=== PATIENT | male | born 1960 | race Caucasian/White ===

== ENCOUNTER → 2017-03-09 | Outpatient (CLI) | payer OTHER ==
[~2017-03-09] MED LIST: ASPI81TA18; ATRO0.063; CLOB05OI; LISI-538; SIMV10TA2; SYNT175T2
--- NOTE | 2017-03-14 11:54 | SLEEPCENT ---
DATE OF PROCEDURE: 03/09/2017 ORDERED: Dr. Lopez Nocturnal polysomnography was performed due to concern for the obstructive sleep apnea syndrome in this patient with a history of excessive somnolence and nonrestorative sleep with comorbidities of hypertension and hypothyroidism. 7 hours and 31 minutes of data were reviewed. There were 325 minutes of sleep identified. Sleep latency was mildly prolonged at 17 minutes. Rapid eye movement (REM) latency was more so at 105 minutes. Sleep architecture was fair. There was a period of wake between midnight and 1:00 a.m. resulting in a reduced sleep efficiency of 73%. Overall REM time was significantly reduced, but there were 3 REM periods. The patient's electrocardiogram (EKG) showed a sinus rhythm and mild rate variability surrounding respiratory events. Average heart rate 57 beats per minute. Electroencephalogram (EEG) showed some coarsening in background, otherwise normal waveforms for awake and sleep. There were 27 respiratory events identified of 10 seconds in duration or greater for an apnea-hypopnea index of 5.1. The events were primarily obstructive, not exclusive to sleep stage, more frequent but not exclusive in the supine posture. Arousals from respiratory events occurred 3.9 times per hour and some snoring was also noted. Oxygen desaturations during respiratory events fell into the upper 80s. There was some limb activity, but arousals from limb events were few. IMPRESSION: Mild partially positional obstructive sleep apnea syndrome (G47.33), apnea-hypopnea index 5.1. RECOMMENDATION: Sleep position retraining for avoidance of the supine posture is recommended. Should the patient's symptoms persist, referral back to a sleep disorder center for pressure therapy should be considered.
== END ==
LOC: M SLEEP 20:00
PROVIDERS: ATTEND Internal Medicine Pulmonary Disease
DX: R06.83 Snoring (principal); Z53.9 Procedure and treatment not carried out, unspecified reason

== ENCOUNTER 2017-06-03 08:00 | Emergency (ER) | payer OTHER ==
[~2017-06-03] VITALS: Ht 182.9 cm; Wt 108.2 kg
[2017-06-03] MEDS ORDERED: ASPI81TA18 (08:16)
[2017-06-03] MEDS ORDERED: ATRO0.063 (08:16)
[2017-06-03] MEDS ORDERED: SYNT175T2 (08:16)
[2017-06-03] MEDS ORDERED: SIMV10TA2 (08:16)
[2017-06-03] MEDS ORDERED: LISI-538 (08:16)
[2017-06-03] MEDS ORDERED: CLOB05OI (08:16)
[2017-06-03 08:43] LABS: BASO % 0.5 % (0.0-1.0); EOS # 0.3 10^3/uL (0.0-0.50); EOS % 5.6 % (0.0-3.0); IMMATURE GRANULOCYTE % 0.2 % (0-0); LYMPH # 2.1 10^3/uL (1.5-4.5); MEAN CORPUSCULAR HGB CONC 35.7 g/dl (32.0-36.5); MEAN CORPUSCULAR VOLUME 92.3 fl (80.0-96.0); MONO # 0.6 10^3/uL (0.0-0.8); MONO % 9.9 % (0.0-5.0); NEUTROPHILS # 2.6 10^3/uL (1.8-7.7); NEUTROPHILS % 46.8 % (36.0-66.0); PLATELET COUNT, AUTOMATED 259 10^3/uL (150-450); RED CELL DISTRIBUTION WIDTH 12.4 % (11.5-14.5); WHITE BLOOD COUNT 5.6 10^3/uL (4.0-10.0)
[2017-06-03] MEDS ORDERED: ASPIRIN 81 MG CHEW TABLET PO ONE (08:45)
[2017-06-03] MEDS ORDERED: PANTOPRAZOLE 40MG TAB (PROTONIX) PO ONE (08:45)
[2017-06-03 08:58] LABS: ALBUMIN/GLOBULIN RATIO 1.21 (1.00-1.93); ALKALINE PHOSPHATASE 59 U/L (45-117); ALT/SGPT 45 U/L (12-78); ANION GAP 7 MEQ/L (8-16); AST/SGOT 31 U/L (15-37); BILIRUBIN,DIRECT 0.2 MG/DL (0.0-0.2); BILIRUBIN,TOTAL 0.6 MG/DL (0.2-1.0); BLOOD UREA NITROGEN 13 MG/DL (7-18); CALCIUM LEVEL 8.9 MG/DL (8.5-10.1); CARBON DIOXIDE LEVEL 26 MEQ/L (21-32); CHLORIDE LEVEL 105 MEQ/L (98-107); CREATININE FOR GFR 0.91 MG/DL (0.70-1.30); GLOMERULAR FILTRATION RATE > 60.0 (>56); GLUCOSE, FASTING 90 MG/DL (70-105); POTASSIUM SERUM 3.7 MEQ/L (3.5-5.1); SODIUM LEVEL 138 MEQ/L (136-145); TOTAL PROTEIN 7.3 GM/DL (6.4-8.2)
--- NOTE | 2017-06-03 09:19 | REP ---
CHEST, SINGLE VIEW: There is no evidence of acute infiltrate. No pleural effusion is seen. The heart is normal in size. The mediastinal silhouette is unremarkable. The visualized osseous structures are intact. IMPRESSION: No acute pulmonary disease. Signed by Ramon Garcia MD 06/03/2017 05:19 P
[2017-06-03 12:48] VITALS: BP 114/61
--- NOTE | 2017-06-04 09:17 | ECGEPIP ---
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
--- NOTE | 2017-06-04 09:20 | ECGEPIP ---
Stationary ECG Study [facility] - ED Test Date: 2017-06-03 Pat Name: ANTWAN MANUEL Department: Room: - Gender: M Swimming Pool Attendant: rn : 1960 Requested By: Bala Chapni Order Number: [id number] Reading MD: Anabel Shine Measurements Intervals [place] Rate: 48 P: 46 CO: 290 QRS: 32 QRSD: 99 T: 20 QT: 439 QTc: 394 Interpretive Statements SINUS BRADYCARDIA WITH FIRST DEGREE AV BLOCK POSSIBLE RIGHT VENTRICULAR CONDUCTION DELAY DECREASED RATE 06/03/17 8:08 Electronically Signed On 06-04-2017 9:20:31 EDT by Anabel Shine
== END 2017-06-03 12:49 | disposition home or self-care (01) ==
LOC: M ED 08:00
DX: Q23.1 Congenital insufficiency of aortic valve (principal); R00.1 Bradycardia, unspecified; I44.0 Atrioventricular block, first degree; R07.89 Other chest pain; I10 Essential (primary) hypertension; K21.9 Gastro-esophageal reflux disease without esophagitis; J45.909 Unspecified asthma, uncomplicated; K57.30 Diverticulosis of large intestine without perforation or abscess without bleeding; Z79.899 Other long term (current) drug therapy

== ENCOUNTER 2018-01-12 11:17 | Day surgery (SDC) | payer OTHER ==
[2018-01-12] MEDS: LR 1,000 ML IV (12:25)
[2018-01-12] MEDS ORDERED: fentaNYL 250 MCG/5 ML INJECTION (J3010) As Ordered (13:29)
[2018-01-12] MEDS ORDERED: MIDAZOLAM INJ 2 MG/2 ML VIAL (J2250) As Ordered (13:29)
[2018-01-12] MEDS ORDERED: LIDOCAINE 2% INJ 100 MG/5 ML SDV (FOR ANES.) As Ordered (13:29)
[2018-01-12] MEDS ORDERED: PROPOFOL 200 MG/20 ML VIAL As Ordered (13:29)
[2018-01-12] MEDS ORDERED: ROCURONIUM BROMIDE 50 MG/5 ML VIAL As Ordered ×2 (13:29→14:14)
[2018-01-12] MEDS ORDERED: dexameTHASONE 4 MG/ML 1ML VIAL (J1100) As Ordered ×2 (13:29→14:48)
[2018-01-12] MEDS: ceFAZolin SOD 1 GM in D5W MINI-BAG PLUS 50 ML IV (13:50)
[2018-01-12] MEDS ORDERED: HYDROmorphone HCL 2 MG/ML 1ML VIAL (J1170) As Ordered (14:48)
[2018-01-12] MEDS ORDERED: GLYCOPYRROLATE INJ 0.2 MG/ML 2 ML VIAL As Ordered (14:48)
[2018-01-12] MEDS ORDERED: KETOROLAC 60 MG/2 ML VIAL (J1885) As Ordered (14:48)
[2018-01-12] MEDS ORDERED: NEOSTIGMINE 10 MG/10 ML VIAL (J2710) As Ordered (14:48)
[2018-01-12] MEDS ORDERED: ONDANSETRON 4MG/2ML VIAL (J2405) As Ordered (14:49)
[2018-01-12] MEDS: BUPIVACAINE HCL 0.25% 10 ML VIAL As Ordered (15:38)
[2018-01-12] MEDS: LIDOCAINE W/EPINEPHRINE 1% 20ML VIAL As Ordered (15:38)
[2018-01-12] MEDS ORDERED: fentaNYL 100 MCG/2 ML INJECTION (J3010) IV (16:15)
[2018-01-12] MEDS ORDERED: NORCO, ANEXSIA 5/325MG TABLET (HYDROcodone/ACETAMINOPHEN) PO (16:15)
[2018-01-12] MEDS ORDERED: PERCOCET 5MG/325MG TAB PO (16:15)
[2018-01-12] MEDS ORDERED: MORPHINE 4 MG/ML 1ML VIAL/SYRINGE (J2270) IV (16:15)
[2018-01-12] MEDS ORDERED: LR 1,000 ML IV ×2 (16:15)
[2018-01-12] MEDS ORDERED: ONDANSETRON 4MG/2ML VIAL (J2405) IV ×2 (16:15)
[2018-01-12] MEDS ORDERED: KETOROLAC 30 MG/ML VIAL (J1885) IV (21:00)
[2018-01-18] MEDS ORDERED: IBUPROFEN 600 MG TAB PO (08:00)
== END 2018-01-12 17:55 | disposition home or self-care (01) ==
LOC: M SDC 11:17
DX: K40.90 Unilateral inguinal hernia, without obstruction or gangrene, not specified as recurrent (principal); I35.9 Nonrheumatic aortic valve disorder, unspecified; I10 Essential (primary) hypertension; E78.5 Hyperlipidemia, unspecified; K21.9 Gastro-esophageal reflux disease without esophagitis; N40.0 Benign prostatic hyperplasia without lower urinary tract symptoms; Z87.891 Personal history of nicotine dependence; Z79.82 Long term (current) use of aspirin; M54.5 Low back pain; Z79.899 Other long term (current) drug therapy
CPT/HCPCS: 49650

== ENCOUNTER 2019-02-18 07:41 | Day surgery (SDC) | payer OTHER ==
[~2019-02-18] VITALS: Ht 180.3 cm; Wt 92.7 kg
[~2019-02-18 07:41] MED LIST changes: -ASPI81TA18; +ASPI81TA52; -CLOB05OI; +CLOB05OI TOP; +DOCU100C17 PO; +ECOT81TA5 PO; +FINA5TAB2 PO; -LISI-538; +LISI-538 PO; +NS 1,000 ML IV ONE; +PROBCAP14 PO; +PROC1AER16 PR; +RANI150T PO; -SIMV10TA2; +SIMV10TA2 PO; +SYNT150T PO; +VITA100054 PO
--- NOTE | 2019-02-18 09:32 | ROOR ---
Patient Name: Vincenzo Bush Procedure Date: 02/18/2019 9:20 AM Date of : 1960 Age: 58 Room: [facility] Gender: Male Note Status: Finalized Procedure: Colonoscopy Indications: Screening for colorectal malignant neoplasm Providers: Rogelio Jennings Jr, MD Referring MD: Daniel Sinha Do Requesting Provider: Medicines: Propofol per Anesthesia Complications: No immediate complications. Procedure: Pre-Anesthesia Assessment: - Prior to the procedure, a History and Physical was performed, and patient medications and allergies were reviewed. The patient is competent. The risks and benefits of the procedure and the sedation options and risks were discussed with the patient. All questions were answered and informed consent was obtained. Patient identification and proposed procedure were verified by the physician and the nurse in the pre-procedure area and in the procedure room. Mental Status Examination: alert and oriented. Airway Examination: normal oropharyngeal airway and neck mobility. Respiratory Examination: clear to auscultation. CV Examination: normal. ASA Grade Assessment: II - A patient with mild systemic disease. After reviewing the risks and benefits, the patient was deemed in satisfactory condition to undergo the procedure. The anesthesia plan was to use moderate sedation / analgesia (conscious sedation). Immediately prior to administration of medications, the patient was re-assessed for adequacy to receive sedatives. The heart rate, respiratory rate, oxygen saturations, blood pressure, adequacy of pulmonary ventilation, and response to care were monitored throughout the procedure. The physical status of the patient was re-assessed after the procedure. The Colonoscope was introduced through the anus and advanced to the cecum, identified by appendiceal orifice and ileocecal valve. The colonoscopy was performed without difficulty. The patient tolerated the procedure well. The quality of the bowel preparation was adequate. Findings: The rectum, recto-sigmoid colon, descending colon, transverse colon, ascending colon, cecum, appendiceal orifice and ileocecal valve appeared normal. A few small and large-mouthed diverticula were found in the sigmoid colon. Impression: - The rectum, recto-sigmoid colon, descending colon, transverse colon, ascending colon, cecum, appendiceal orifice and ileocecal valve are normal. - Diverticulosis in the sigmoid colon. - No specimens collected. Recommendation: - Discharge patient to home (ambulatory). - Repeat colonoscopy in 10 years for screening purposes. Rogelio Jennings MD Rogelio Jennings Jr, MD 02/18/2019 9:32:19 AM Electronically signed by Rogelio Jennings Jr, MD Number of Addenda: 0 Note Initiated On: 02/18/2019 9:20 AM Estimated Blood Loss: Estimated blood loss: none.
[2019-02-18] MEDS ORDERED: LIDOCAINE 2% INJ 100 MG/5 ML SDV (FOR ANES.) As Ordered ONE (09:33)
[2019-02-18] MEDS ORDERED: PROPOFOL 200 MG/20 ML VIAL As Ordered ONE (09:33)
[2019-02-18 09:56] VITALS: BP 148/72
== END 2019-02-18 10:01 | disposition home or self-care (01) ==
LOC: M OPP 07:41
PROVIDERS: ATTEND Surgery
DX: K57.30 Diverticulosis of large intestine without perforation or abscess without bleeding (principal); Z12.11 Encounter for screening for malignant neoplasm of colon

== ENCOUNTER → 2020-10-12 | Outpatient (CLI) | payer OTHER ==
[~2020-10-12] MED LIST changes: -NS 1,000 ML IV ONE; -SIMV10TA2 PO; +SIMV10TA21 PO
[2020-10-12 10:53] LABS: BLOOD UREA NITROGEN 11 MG/DL (7-18); CALCIUM LEVEL 9.5 MG/DL (8.5-10.1); CARBON DIOXIDE LEVEL 32 MEQ/L (21-32); CHLORIDE LEVEL 99 MEQ/L (98-107); CREATININE FOR GFR 0.96 MG/DL (0.70-1.30); GLOMERULAR FILTRATION RATE > 60.0 (>56); GLUCOSE, FASTING 88 MG/DL (70-100); POTASSIUM SERUM 3.9 MEQ/L (3.5-5.1); SODIUM LEVEL 135 MEQ/L (136-145)
== END ==
LOC: M WUC 08:20
PROVIDERS: ATTEND Physician Assistant
DX: I11.9 Hypertensive heart disease without heart failure (principal)

== ENCOUNTER 2020-11-16 13:13 | Emergency (ER) | payer OTHER ==
[~2020-11-16] VITALS: Ht 180.3 cm; Wt 94.9 kg
[~2020-11-16 13:13] MED LIST changes: -LISI-538 PO; +LISI20TA33 PO
[2020-11-16 14:02] LABS: BASO % 0.3 % (0.0-1.0); EOS # 0.1 10^3/uL (0.0-0.5); EOS % 0.8 % (0.0-3.0); HEMATOCRIT 43.8 % (42.0-52.0); HEMOGLOBIN 15.5 g/dl (13.5-17.5); LYMPH # 1.9 10^3/uL (1.5-5.0); LYMPH % 16.5 % (24.0-44.0); MEAN CORPUSCULAR HEMOGLOBIN 33.5 pg (27.0-33.0); MEAN CORPUSCULAR HGB CONC 35.4 g/dl (32.0-36.5); MEAN CORPUSCULAR VOLUME 94.8 fl (80.0-96.0); MONO # 0.8 10^3/uL (0.0-0.8); MONO % 6.6 % (2.0-8.0); NEUTROPHILS # 8.9 10^3/uL (1.5-8.5); NEUTROPHILS % 75.5 % (36.0-66.0); PLATELET COUNT, AUTOMATED 260 10^3/uL (150-450); RED BLOOD COUNT 4.62 10^6/uL (4.30-6.10); WHITE BLOOD COUNT 11.8 10^3/uL (4.0-10.0)
[2020-11-16] MEDS ORDERED: SPIR-10 PO (14:02)
[2020-11-16] MEDS ORDERED: DIAZ5TAB PO (14:02)
[2020-11-16] MEDS ORDERED: ALIG4CAP (14:02)
[2020-11-16] MEDS ORDERED: CHLO125TA PO (14:02)
[2020-11-16] MEDS ORDERED: SYNT137T7 (14:02)
[2020-11-16] MEDS ORDERED: VITA50005 (14:02)
[2020-11-16] MEDS ORDERED: NS 1,000 ML IV ONE (14:20)
[2020-11-16 14:32] LABS: ALBUMIN 4.4 GM/DL (3.2-5.2); BILIRUBIN,DIRECT 0.1 MG/DL (0.0-0.2); BILIRUBIN,TOTAL 0.3 MG/DL (0.2-1.0); TOTAL PROTEIN 7.6 GM/DL (6.4-8.2)
--- NOTE | 2020-11-16 15:18 | REP ---
INDICATION: ruq pain, biliary colic. COMPARISON: None. TECHNIQUE: Real-time sonographic evaluation of right upper quadrant performed. FINDINGS: There are multiple mobile subcentimeter gallstones in the gallbladder. There is no gallbladder wall thickening. There is no intrahepatic or extrahepatic biliary dilatation, common bile duct measures 5 mm in maximum diameter. The liver demonstrates homogeneous echotexture with no gross mass. The pancreas is grossly unremarkable, not optimally visualized due to overlying bowel gas. The right kidney demonstrates no hydronephrosis, with a normal size of 12.5 cm in length. No free fluid is seen. IMPRESSION: Multiple mobile subcentimeter gallstones in the gallbladder. No gallbladder wall thickening, free fluid or biliary dilatation. <Electronically signed by Ramon Garcia > 11/16/20 [id number]
[2020-11-16] MEDS ORDERED: ULTR50TA8 PO (15:41)
[2020-11-16] MEDS ORDERED: ONDA4TAB6 PO (15:41)
[2020-11-16 15:49] VITALS: BP 169/85
[2020-11-21] MEDS ORDERED: CLOB0.0548 TOP (13:53)
[2020-11-21] MEDS ORDERED: CLOB0.0526 TOP (13:53)
== END 2020-11-16 16:25 | disposition home or self-care (01) ==
LOC: M ED 13:13
DX: K80.20 Calculus of gallbladder without cholecystitis without obstruction (principal); E03.9 Hypothyroidism, unspecified; I10 Essential (primary) hypertension; K21.9 Gastro-esophageal reflux disease without esophagitis; Z79.899 Other long term (current) drug therapy

== ENCOUNTER 2020-12-05 09:06 | Day surgery (SDC) | payer OTHER ==
[~2020-12-05] VITALS: Ht 180.3 cm; Wt 94.3 kg
[~2020-12-05 09:06] MED LIST changes: +ALIG4CAP; +CHLO125TA PO; +CLOB0.0526 TOP; +CLOB0.0548 TOP; +DIAZ5TAB PO; +LIDOCAINE 2% 100MG/5ML SDV (FOR ANES.) As Ordered ONE; +LR 1,000 ML IV ONE; +MIDAZOLAM INJ 2MG/2ML VIAL (J2250 PER 1MG) As Ordered ONE; +ONDA4TAB6 PO; +ONDANSETRON 4MG/2ML VIAL As Ordered ONE; +PHENYLephrine 500MCG 5ML (100MCG/ML) SYRINGE As Ordered ONE; +ROCURONIUM BROMIDE 50 MG/5 ML VIAL As Ordered ONE; +SPIR-10 PO; +SUGAMMADEX SODIUM 500 MG/5 ML VIAL (BRIDION) As Ordered ONE; +SYNT137T7; +ULTR50TA8 PO; +VITA50005; +dexameTHASONE 4 MG/ML 1ML VIAL (J1100 PER 1MG) As Ordered ONE; +ePHEDrine SULFATE 25 MG/5 ML(5MG/ML) SYRINGE As Ordered ONE; +fentaNYL 100 MCG/2 ML INJECTION (J3010) As Ordered ONE; +propofoL 200 MG/20 ML VIAL As Ordered ONE
[2020-12-05] MEDS ORDERED: BUPIVACAINE HCL 0.25% 30ML VIAL As Ordered ONE (10:48)
[2020-12-05] MEDS ORDERED: ACETAMINOPHEN 1000MG 100ML IV BTL (OFIRMEV) (J0131 PER 10MG) As Ordered ONE (11:30)
[2020-12-05] MEDS ORDERED: oxyCODONE 5MG TAB PO PRN (13:50)
[2020-12-05] MEDS ORDERED: ONDANSETRON 4MG/2ML VIAL IV PRN (13:50)
[2020-12-05] MEDS ORDERED: fentaNYL 100 MCG/2 ML INJECTION (J3010) IV PRN (13:50)
[2020-12-05] MEDS ORDERED: LR 1,000 ML IV SCH (13:50)
[2020-12-05] MEDS ORDERED: HYDROMORPHONE HCL 0.5 MG/ 0.5 ML SYRINGE (J1170 PER 1) IV PRN (13:50)
[2020-12-05] MEDS ORDERED: NORCO, ANEXSIA 5/325MG TABLET (HYDROcodone/ACETAMINOPHEN) PO PRN (14:10)
[2020-12-05] MEDS ORDERED: IBUPROFEN 600MG TAB PO PRN (14:10)
[2020-12-05] MEDS ORDERED: ACETAMINOPHEN TAB 650MG DOSE (2X325MG) PO PRN (14:10)
[2020-12-05] MEDS ORDERED: HYDR-3715 PO (15:41)
[2020-12-05 17:30] VITALS: BP 160/70
--- NOTE | 2020-12-06 08:17 | RO ---
OPERATIVE NOTE DATE OF OPERATION: 12/05/2020 PREOPERATIVE DIAGNOSIS: Symptomatic gallstones. POSTOPERATIVE DIAGNOSIS: Symptomatic gallstones with chronic cholecystitis. PROCEDURE PERFORMED: Laparoscopic cholecystectomy. SURGEON: Shankar Quezada MD CLEANER AND PREPARER: ANESTHESIA: General. INDICATIONS FOR PROCEDURE: The patient is a 59-year-old man with history of several episodes of right upper quadrant abdominal pain. A gallbladder ultrasound confirmed cholelithiasis. He is now for laparoscopic cholecystectomy. DESCRIPTION OF PROCEDURE: The patient was brought to the operating room and placed on the table in the supine position. He was placed under general endotracheal anesthesia. The patient's abdomen was prepped and draped in a sterile fashion. Marcaine 0.25% was infiltrated at each of the trocar sites as needed. The initial site was a short incision in left upper quadrant. A Veress needle was inserted. After a positive hanging drop test, the abdomen was inflated with carbon dioxide gas. A 5 mm port was placed over the scope and this was advanced through the abdominal wall without difficulty. Initial examination showed normal appearing liver. The gallbladder appeared somewhat thickened and pale and was noted in the usual location. Visualized portions of the stomach and small and large bowel appeared normal. A 12 mm port was placed just above the umbilicus. Two 5 mm ports were placed in the right upper quadrant. The patient was tilted to slight reverse Trendelenburg position and rolled slightly to the left. Gallbladder was grasped and elevated. A few filmy adhesions to the omentum were divided with Hook cautery. Dissection was then begun near the gallbladder neck. The peritoneum was opened. There was some definite scarring at the gallbladder neck area. Working carefully through this scarred pericholecystic tissue it was clear that there was a stone lodged in the neck of the gallbladder. With careful dissection the cystic duct was clearly identified and dissected free. This was doubly clipped with hemoclips and divided. With further dissection the cholecystic artery was identified and this was also doubly clipped and divided. The gallbladder was then dissected free from the gallbladder bed using cautery dissection. The gallbladder was not perforated in the course of dissection. The gallbladder was placed in an Endopouch. The right upper quadrant was irrigated and several small bleeding points on the gallbladder bed were cauterized. Final inspection revealed no evidence of bleeding and no evidence of bile leak. The patient was returned to a flat position. The abdomen was deflated and the trocars were all removed. Gallbladder was recovered through the supraumbilical site which required extending the incision slightly. The fascia was then closed with interrupted simple sutures of 2-0 Vicryl. The skin incisions were all closed with buried 4-0 Vicryl and Steri-Strips. Light dressings were applied. The patient tolerated the procedure well without apparent complication. He was awakened in the operating room, extubated and moved to the recovery room in stable condition.
== END 2020-12-05 17:30 | disposition home or self-care (01) ==
LOC: M SDC 09:06
PROVIDERS: ATTEND Surgery
DX: K80.10 Calculus of gallbladder with chronic cholecystitis without obstruction (principal); E03.9 Hypothyroidism, unspecified; I10 Essential (primary) hypertension; K57.92 Diverticulitis of intestine, part unspecified, without perforation or abscess without bleeding; J44.9 Chronic obstructive pulmonary disease, unspecified; Z79.899 Other long term (current) drug therapy
CPT/HCPCS: 47562; 88304; J0131; J1100; J1170; J2250; J2370; J2405; J3010

== ENCOUNTER → 2022-06-17 | Outpatient (CLI) | payer OTHER ==
[~2022-06-17] MED LIST changes: +ERGO500029; +HYDR-3715 PO; -LIDOCAINE 2% 100MG/5ML SDV (FOR ANES.) As Ordered ONE; -LR 1,000 ML IV ONE; -MIDAZOLAM INJ 2MG/2ML VIAL (J2250 PER 1MG) As Ordered ONE; -ONDANSETRON 4MG/2ML VIAL As Ordered ONE; -PHENYLephrine 500MCG 5ML (100MCG/ML) SYRINGE As Ordered ONE; -ROCURONIUM BROMIDE 50 MG/5 ML VIAL As Ordered ONE; -SUGAMMADEX SODIUM 500 MG/5 ML VIAL (BRIDION) As Ordered ONE; -VITA50005; -dexameTHASONE 4 MG/ML 1ML VIAL (J1100 PER 1MG) As Ordered ONE; -ePHEDrine SULFATE 25 MG/5 ML(5MG/ML) SYRINGE As Ordered ONE; -fentaNYL 100 MCG/2 ML INJECTION (J3010) As Ordered ONE; -propofoL 200 MG/20 ML VIAL As Ordered ONE
== END ==
LOC: M RAD 09:50
PROVIDERS: ATTEND Registered Nurse
DX: Z12.2 Encounter for screening for malignant neoplasm of respiratory organs (principal); Z87.891 Personal history of nicotine dependence

== ENCOUNTER → 2022-08-02 | Outpatient (CLI) | payer OTHER | LOC: M RAD 08:10 | PROVIDERS: ATTEND Registered Nurse | DX: Z53.9 Procedure and treatment not carried out, unspecified reason (principal) ==

== ENCOUNTER → 2022-09-27 | Outpatient (CLI) | payer OTHER ==
[2022-09-27 12:56] LABS: HEMATOCRIT 45.7 % (42.0-52.0); HEMOGLOBIN 15.5 g/dl (13.5-17.5); MEAN CORPUSCULAR HEMOGLOBIN 33.3 pg (27.0-33.0); MEAN CORPUSCULAR HGB CONC 33.9 g/dl (32.0-36.5); MEAN CORPUSCULAR VOLUME 98.1 fl (80.0-96.0); PLATELET COUNT, AUTOMATED 266 10^3/uL (150-450); RED BLOOD COUNT 4.66 10^6/uL (4.30-6.10); WHITE BLOOD COUNT 7.7 10^3/uL (4.0-10.0)
[2022-09-27 13:29] LABS: BLOOD UREA NITROGEN 18 MG/DL (9-23); CALCIUM LEVEL 9.5 MG/DL (8.3-10.6); CARBON DIOXIDE LEVEL 31 MMOL/L (20-31); CHLORIDE LEVEL 100 MMOL/L (98-107); CREATININE FOR GFR 0.82 MG/DL (0.70-1.30); GLOMERULAR FILTRATION RATE > 60.0 (>49); GLUCOSE, FASTING 86 MG/DL (74-106); POTASSIUM SERUM 4.7 MMOL/L (3.5-5.1); SODIUM LEVEL 137 MMOL/L (136-145)
== END ==
LOC: M WUC 09:19
PROVIDERS: ATTEND Physician Assistant
DX: Q23.0 Congenital stenosis of aortic valve (principal)

== ENCOUNTER → 2023-10-10 | Outpatient (CLI) | payer OTHER | LOC: M PLAIMG 07:43 | PROVIDERS: ATTEND Physician Assistant | DX: Q23.0 Congenital stenosis of aortic valve (principal) ==

== ENCOUNTER → 2023-11-18 | Outpatient (CLI) | payer OTHER | LOC: M RAD 08:56 | PROVIDERS: ATTEND Nurse Practitioner Family | DX: Z12.2 Encounter for screening for malignant neoplasm of respiratory organs (principal); Z87.891 Personal history of nicotine dependence; I25.10 Atherosclerotic heart disease of native coronary artery without angina pectoris; I70.0 Atherosclerosis of aorta ==

== ENCOUNTER → 2024-12-28 | Outpatient (CLI) | payer OTHER ==
[~2024-12-28] MED LIST changes: -ALIG4CAP; +ALIG4CAP3; +ONDA-282 PO; -ONDA4TAB6 PO
== END ==
LOC: M CARPUL 08:25
PROVIDERS: ATTEND Physician Assistant
DX: Q23.0 Congenital stenosis of aortic valve (principal); Q23.1 Congenital insufficiency of aortic valve

== ENCOUNTER → 2025-04-18 | Outpatient (CLI) | payer OTHER | LOC: M RAD 06:26 | PROVIDERS: ATTEND Registered Nurse | DX: Z87.891 Personal history of nicotine dependence (principal) ==